=== PATIENT | male | born 1955 | race Caucasian/White ===

== ENCOUNTER → 2017-12-15 | Outpatient (CLI) | payer MEDICARE ==
[~2017-12-15] MED LIST: IOHEXOL 350 MG/ML 100 ML (OMNIPAQUE 350) VIAL IV ONE; NS 250 ML (IVPB) BAG IV ONE; RT-ALBUTEROL SULF 2.5 MG/3 ML PRE-MIX VIAL INH ONE
--- NOTE | 2017-12-15 10:50 | Diagnostic Imaging Report ---
PROCEDURE: CT chest with contrast only. TECHNIQUE: Multiple contiguous axial images were obtained through the chest after administration of intravenous contrast. INDICATION: COPD and history of histoplasmosis. COMPARISON: No prior studies are available for comparison. FINDINGS: No axillary lymphadenopathy is detected. Mildly prominent lymph nodes in the mediastinum are seen. Paratracheal node measures approximately 2.0 x 1.2 cm. No discrete hilar mass or lymphadenopathy is seen. No pericardial fluid is detected. No pleural effusion is identified. Central airways are patent. There is marked abnormal appearance throughout the pulmonary parenchyma. There is fairly symmetric bilateral upper and lower lobe involvement with significant consolidation with associated cavitation. There are nodular opacities as well adjacent to the large confluent regions consistent with small satellite nodules. Several of the satellite nodules demonstrate some cavitation as well. Upper lobe lesion is approximately 8.3 x 7.1 cm. Left upper lobe lesion is 10.6 x 5.5 cm. Upper abdomen is unremarkable. Bony structures are nonacute. IMPRESSION: Marked bilateral upper and lower lobe parenchymal consolidation with associated cavitation and adjacent satellite nodules. There is also some mild associated mediastinal lymphadenopathy. Features are suggestive of an infectious/inflammatory process. Atypical organisms such as mycobacterial or fungal infection would be a consideration. Bronchoscopy would be recommended. Dictated by: Dictated on workstation # [id number]
== END ==
LOC: RT 08:16
PROVIDERS: ATTEND Internal Medicine Critical Care Medicine
DX: J44.9 Chronic obstructive pulmonary disease, unspecified (principal); F41.9 Anxiety disorder, unspecified; B39.9 Histoplasmosis, unspecified; Z72.0 Tobacco use
CPT/HCPCS: 71260; 94060; 94726; 94729